=== PATIENT | female | born 1945 | race Caucasian/White ===

== ENCOUNTER 2018-03-26 00:59 | Day surgery (SDC) | payer MEDICARE, MEDICAID ==
[2015-06-05 11:31] VITALS: Ht 157.5 cm; Wt 83.5 kg
[~2018-03-26] VITALS: Ht 157.5 cm; Wt 83.5 kg
[~2018-03-26 00:59] MED LIST: ACE325 PO; ACET-1718 PO; ACET-3017 PO; AMLO-98 PO; AMLO-99 PO; ASPI-715 PO; ASPI-870 PO; ATOR-1 PO; BUP100 PO; BUP75 PO; BUPR-124 PO; BUPR-126 PO; BUPR-136; BUPR-474 PO; CEP500 PO; CEPH-13 PO; CHLO1CAP45 PO; DICY20TA70 PO; DOCU-416 PO; DYA PO; ESOM20CA31 PO; ESOM40CA42 PO; EST625 PO; ESTR0.5T18 PO; ESTR0.62 PO; ESTR42.5 VG; EZE10 PO; FES4PT PO; FURO-45 PO; HYDR-4309 PO; HYDR-6016 PO; HYDR12.558 PO; HYDR12.561 PO; IBUP800T37 PO; ISOM60 PO; ISOS30TA51 PO; ISOS30TA54 PO; ISOS30TA71 PO; LABE100T28 PO; LINA290C PO; LISI-349 PO; LISI-368 PO; LOR5/325 PO; MELO-205 PO; MIRT-22 PO; OMEP40CA48 PO; OXYC-373 PO; OXYC-823 PO; PER PO; POTA-53 PO; POTA10CA40 PO; POTA8TAB41 PO; RANI-318 PO; RIV10 PO; SIMV-42 PO; SPIR1TAB26 PO; SPIR25TA78 PO; TRA50 PO; TRIA-19 PO; [UNRECOGNIZED DRUG - CODE] PO
[2018-03-26 09:20] VITALS: BP 141/81
[2018-03-26] MEDS ORDERED: PROPOFOL EMUL(*) 10MG/ML 20 ML 40 ML ONE (09:42)
[2018-03-26] MEDS ORDERED: LIDOCAINE MPF 1% 5 ML VIAL ONE (09:42)
[2018-03-26] MEDS ORDERED: NORMOSOL R SOLN(*) 1000 ML BAG 1,000 ML IV PRN (10:00)
[2018-03-26] MEDS ORDERED: LIDOCAINE/SOD BICARB 8.4% SYR ID ONE (10:00)
[2018-03-26 11:20] VITALS: BP 102/49
[2018-03-26 12:00] VITALS: BP 160/53
[2018-03-26 12:06] VITALS: BP 160/75
[2018-03-26 12:08] VITALS: BP 157/73
== END 2018-03-26 12:24 | disposition home or self-care (01) ==
LOC: OR 00:59
PROVIDERS: ATTEND Family Medicine
DX: K92.1 Melena (principal); K57.30 Diverticulosis of large intestine without perforation or abscess without bleeding
CPT/HCPCS: 00811; 45378; J2001; J2704

== ENCOUNTER → 2019-03-16 | Outpatient (CLI) | payer MEDICARE, MEDICAID ==
[2015-06-05 11:31] VITALS: BMI 32.5
[~2019-03-16] MED LIST changes: +AMLO-127 PO; -AMLO-99 PO; -HYDR-4309 PO; +HYDR-653 PO; +LABE100T2 PO; -SPIR25TA78 PO; +SPIR25TA80 PO
--- NOTE | 2019-03-16 10:49 | RADIOLOGY IMAGING REPORT ---
FACILITY: [facility] PATIENT NAME: Claire Barfield : 1945 MR: [id number] V: [id number] EXAM DATE: ORDERING PHYSICIAN: BATOOL DONALD TECHNOLOGIST: Location: [facility] Patient: Claire Barfield : 1945 Visit/Account:[id number] Date of Sevice: 03/16/2019 Exam type: CHEST PA LAT History: Precordial pain Comparison: May 03, 2015. Findings: There mild hypoventilatory changes from a limited historian effort. Cardiac peribronchial thickening again noted bilaterally. Is a slight increase in interstitial markings without the lungs although n o evidence of overt pulmonary edema or pleural effusions. The cardiac silhouette is enlarged and the re is moderate ectasia the thoracic aorta IMPRESSION: 1. Mild hypoventilatory changes Chronic peribronchial thickening Cardiomegaly and moderate ectasia the thoracic aorta Report Dictated By: Candy Walters MD at 03/16/2019 10:43 AM Report E-Signed By: Candy Walters MD at 03/16/2019 10:45 AM WSN:[email or web address]
== END ==
LOC: RAD 09:59
PROVIDERS: ATTEND Family Medicine
DX: I51.7 Cardiomegaly (principal); I77.810 Thoracic aortic ectasia
CPT/HCPCS: 71046